=== PATIENT | male | born 1965 | race Caucasian/White ===

== ENCOUNTER 2020-12-22 12:44 | Emergency (ER) | payer OTHER ==
[2020-12-22 16:32] LABS: HEMOGLOBIN 17.7 gm/dl (14.0-17.5); RED BLOOD COUNT 5.47 M/UL (4.20-5.50); WHITE BLOOD COUNT 5.6 K/UL (4.5-11.0)
[2020-12-22 16:54] LABS: BUN/CREATININE RATIO 18 (0-10)
[2020-12-25 13:09] LABS: LYME IGG/IGM AB <0.91 ISR (0.00-0.90)
== END 2020-12-22 21:15 | disposition home or self-care (01) ==
LOC: ER1 12:44
PROVIDERS: Family Medicine
DX: S80.862A Insect bite (nonvenomous), left lower leg, initial encounter (principal); S80.861A Insect bite (nonvenomous), right lower leg, initial encounter; S40.862A Insect bite (nonvenomous) of left upper arm, initial encounter; R10.9 Unspecified abdominal pain; R07.9 Chest pain, unspecified; Z79.899 Other long term (current) drug therapy; F17.200 Nicotine dependence, unspecified, uncomplicated; W57.XXXA Bitten or stung by nonvenomous insect and other nonvenomous arthropods, initial encounter
CPT/HCPCS: 71045; 80053; 81001; 82550; 82553; 83874; 84484; 85025; 85610; 86618; 93005; 96374; 96375; 99285; J1885; Q9967